=== PATIENT | male | born 1950 | race Two or more races ===

== ENCOUNTER 2023-05-11 10:07 | Outpatient (CLI) | payer OTHER ==
[2023-05-11] MEDS ORDERED: ATORVASTATIN CA10 MG (14:34)
[2023-05-11] MEDS ORDERED: VERELAN PM100 MG (14:34)
[2023-05-11] MEDS ORDERED: XARELTO10 MG (14:34)
[2023-05-11] MEDS ORDERED: TRAZODONE HCL5 GM (14:35)
[2023-05-11] MEDS ORDERED: CARVEDILOL12.5 MG (14:35)
[2023-05-11] MEDS ORDERED: LEVOTHYROXINE25 MC2 PO (14:35)
[2023-05-11] MEDS ORDERED: PLAVIX75 MG PO (14:35)
[2023-05-11] MEDS ORDERED: KAPSPARGO SPRIN50 MG PO (14:35)
== END 2023-05-11 10:11 | disposition home or self-care (01) ==
LOC: NUCLEAR 10:07
PROVIDERS: ATTEND Internal Medicine
DX: R22.40 Localized swelling, mass and lump, unspecified lower limb (principal)

== ENCOUNTER 2023-05-11 13:38 | Inpatient (IN) | payer OTHER ==
[~2023-05-11] VITALS: Ht 175.3 cm; Wt 77.1 kg
[2023-05-11] MEDS ORDERED: VERELAN PM100 MG (14:34)
[2023-05-11] MEDS ORDERED: XARELTO10 MG (14:34)
[2023-05-11] MEDS ORDERED: ATORVASTATIN CA10 MG (14:34)
[2023-05-11] MEDS ORDERED: LEVOTHYROXINE25 MC2 PO (14:35)
[2023-05-11] MEDS ORDERED: TRAZODONE HCL5 GM (14:35)
[2023-05-11] MEDS ORDERED: CARVEDILOL12.5 MG (14:35)
[2023-05-11] MEDS ORDERED: KAPSPARGO SPRIN50 MG PO (14:35)
[2023-05-11] MEDS ORDERED: PLAVIX75 MG PO (14:35)
--- NOTE | 2023-05-11 14:36 | NUR ---
PACIENTE ALERTA Y ORIENTADO X3 QUIEN VERBALIZA QUE LLEVA VARIOS [place] CON CANSANCIO, DEBILIDAD GENERALIZADA, PACIENTE VIENE CON REFERIDO DE DR ORDAZ. S MONITOREAN S/V Y SE UBICA PACIENTE.
--- NOTE | 2023-05-11 14:57 | NUR ---
SE PRESENTA PACIENTE A DRA PATEL, QUIEN VERBALIZA CONECTAR PACIENTE A MONITOR CARDIACO Y OXIMETRIA DE PULSO CONTINUA, SE UBICA PACIENTE EN JORGE #13, SE CONECTA A MONITOR CARDIACO. SE LE HACE ENTREGA DE PACIENTE A RN DE AREA DE OBSERVACION PARA CONTINUIDAD DE TRATAMIENTO MEDICO.
--- NOTE | 2023-05-11 17:30 | NUR ---
PTE EVALUADO POR MD BRICE [place] MED MR Franci GAR EDUCA A PTE SOBRE [place] MED Y LE REFIER EENTDER. MR Franci GAR LLEVA ACABO VENOPUNCION BAJO MEDIDAS ACEPTICAS. PTE PEND A IMAGENES Y RESULTADOS DE LABS.
[2023-05-17] MEDS ORDERED: ARICEPT10 MG PO (10:50)
[2023-05-17] MEDS ORDERED: CLOPIDOGREL BIS75 MG PO (10:50)
[2023-05-17] MEDS ORDERED: XARELTO20 MG PO (10:51)
[2023-05-17] MEDS ORDERED: GABAPENTIN100 MG PO (10:51)
[2023-05-17] MEDS ORDERED: LEVOTHYROXINE25 MCG PO (10:51)
[2023-05-17] MEDS ORDERED: METOPROLOL TART50 MG PO (10:51)
[2023-05-17] MEDS ORDERED: LOSARTAN POTASS25 MG PO (10:51)
[2023-05-17] MEDS ORDERED: LIPITOR40 M1 PO (10:52)
== END 2023-05-17 12:39 | disposition home or self-care (01) | DRG 292 ==
LOC: ER 13:38 → MEDI 20:33 → SEC-K 20:33 → MEDI 05-12 01:57
PROVIDERS: ADMIT Internal Medicine; ATTEND Internal Medicine
PROC: 4A12X4Z Monitoring of Cardiac Electrical Activity, External Approach (ICD-10-PCS; principal; 2023-05-13)
DX: I11.0 Hypertensive heart disease with heart failure (principal); F10.231 Alcohol dependence with withdrawal delirium; I48.20 Chronic atrial fibrillation, unspecified; I50.9 Heart failure, unspecified; E03.9 Hypothyroidism, unspecified; G47.33 Obstructive sleep apnea (adult) (pediatric); E78.5 Hyperlipidemia, unspecified